=== PATIENT | female | born 1965 ===

== ENCOUNTER 2018-02-07 03:02 | Emergency (ER) | payer OTHER ==
[~2018-02-07] VITALS: Ht 170.2 cm; Wt 72.6 kg
[~2018-02-07 03:02] MED LIST: SINGULAIR 10MG10 MG PO
[2018-02-07] MEDS ORDERED: SINGULAIR4 M1 (03:09)
[2018-02-07] MEDS ORDERED: FLONASE16 GM (03:09)
== END 2018-02-07 17:07 | disposition home or self-care (01) ==
LOC: ER 03:02
DX: K29.70 Gastritis, unspecified, without bleeding (principal); E86.0 Dehydration